=== PATIENT | female | born 1940 | race Caucasian/White ===

== ENCOUNTER → 2024-08-30 11:30 | Outpatient (REF) | payer OTHER, SELFPAY | LOC: HWRAD 11:30 | PROVIDERS: ATTENDING PHYSICIAN Family Medicine | DX: S90.32XA Contusion of left foot, initial encounter (principal) | CPT/HCPCS: 73630 ==

== ENCOUNTER → 2024-10-02 14:51 | Outpatient (REF) | payer OTHER, SELFPAY | LOC: HWRCS 14:51 | PROVIDERS: ATTENDING PHYSICIAN Internal Medicine Cardiovascular Disease; FAMILY PHYSICIAN Family Medicine | DX: I48.0 Paroxysmal atrial fibrillation (principal) | CPT/HCPCS: 93306 ==